=== PATIENT | male | born 1990 | race Caucasian/White ===

== ENCOUNTER 2019-09-15 11:16 | Emergency (ER) | payer BC ==
[~2019-09-15] VITALS: Ht 175.3 cm; Wt 54.4 kg
[2019-09-15 11:39] VITALS: BP_SYST 139
--- NOTE | 2019-09-15 11:46 | NUR ---
Patient triaged and placed in waiting room. VSS and patient appears in no acute distress at this time. Accompanied by self, awaiting available bed, and MD notified of need for MSE.
[2019-09-15 14:18] LABS: BILIRUBIN,URINE 1+ (NEGATIVE); BLOOD, URINE NEGATIVE (NEGATIVE); CLARITY/URINE CLEAR (CLEAR); COLOR,URINE YELLOW (YELLOW); GLUCOSE,URINE NEGATIVE (NEGATIVE); KETONES,URINE 2+ (NEGATIVE); LEUKOCYTE ESTERASE ,URINE NEGATIVE (NEGATIVE); NITRITE, URINE NEGATIVE (NEGATIVE); PH,URINE 5.5 (5.0-8.0); PROTEIN URINE TRACE (NEGATIVE); UROBILINOGEN,URINE 0.2 (0.2-1.0)
[2019-09-15 14:20] LABS: BACTERIA,URINE FEW /HPF (None Seen); RBC,URINE 0-3 /HPF (0-3); WBC,URINE 0-3 /HPF (0-3)
--- NOTE | 2019-09-15 15:11 | NUR ---
Note emily in ED - 09/15/19 at 1514 by [email or web address] Patient to bed 02 for evaluation. Side rails up.
--- NOTE | 2019-09-15 15:11 | NUR ---
Melanie diaz in ED - 09/15/19 at 1514 by [email or web address] JOSE D Hall at bedside examining patient.
--- NOTE | 2019-09-15 15:14 | NUR ---
Patient left without being seen.
== END 2019-09-15 15:14 | disposition left against medical advice (07) ==
LOC: SED 11:16
DX: J11.1 Influenza due to unidentified influenza virus with other respiratory manifestations (principal); Z53.21 Procedure and treatment not carried out due to patient leaving prior to being seen by health care provider
CPT/HCPCS: 36415; 81000-TC; 86710